=== PATIENT | male | born 1950 | race Caucasian/White ===

== ENCOUNTER → 2019-09-14 14:28 | Outpatient (REF) | payer MEDICARE, SELFPAY | LOC: ANHLAB 14:28 | PROVIDERS: Visit Provider Nurse Practitioner | DX: C44.01 Basal cell carcinoma of skin of lip (principal) | CPT/HCPCS: 88305 ==

== ENCOUNTER → 2019-10-19 07:08 | Outpatient (REF) | payer MEDICARE, SELFPAY | LOC: ANHLAB 07:08 | PROVIDERS: Visit Provider Nurse Practitioner | DX: C44.01 Basal cell carcinoma of skin of lip (principal) | CPT/HCPCS: 88305; 88331 ==